=== PATIENT | female | born 1955 | race African-American/Black ===

== ENCOUNTER 2024-01-07 12:06 | Day surgery (SDC) | payer MEDICARE, MEDICAID ==
[~2024-01-07] VITALS: Ht 149.9 cm; Wt 70.8 kg
[~2024-01-07 12:06] MED LIST: AMBIEN 10MG10 MG PO; DOXYCYCLINE 10100 MG PO; FLEXERIL 1010 MG/TAB PO; GOOD NEIGHBOR325 MG PO; LR 1,000 ML IV SCH; MELOXICAM15 MG PO; NAPROSYN500 MG PO; NEURONTIN100 MG/CAP PO; NORCO 325 MG-51 TAB PO; Ondansetron 4 MG/2 ML VIAL IV PRN; PAXIL 10MG10 MG; PREDNISONE20 MG PO; PRILOSEC 20MG20 MG PO; PRINIVIL5 MG PO; PRINZIDE 12.5 M1 TA1 PO; ZOFRAN ODT4 MG PO; ZOLOFT 100MG100 MG PO
[2024-01-07] MEDS ORDERED: LEXAPRO 10MG10 MG PO (12:47)
[2024-01-07] MEDS ORDERED: PERCOCET 325 MG1 TA3 PO (12:48)
[2024-01-07] MEDS ORDERED: PROTONIX 40MG T40 MG PO (12:49)
[2024-01-07] MEDS ORDERED: PROAIR HFA0.09 MG/AC IH (12:49)
[2024-01-07] MEDS ORDERED: HCTZ 25MG TAB25 MG PO (12:50)
[2024-01-07] MEDS ORDERED: CARAFATE 1GM1 G PO (12:50)
[2024-01-07] MEDS ORDERED: SILENOR6 MG PO (12:50)
[2024-01-07] MEDS ORDERED: CRESTOR5 MG PO (12:51)
[2024-01-07] MEDS ORDERED: NORVASC 10MG10 MG PO (12:52)
--- NOTE | 2024-01-07 12:55 | NUR ---
PATIENT ADMITTED TO ROOM 1 AMBULATORY. C/O BEING VERY TIRED D/T NO SLEEPING LAST PM.
[2024-01-07 13:02] VITALS: BP 149/98; PULSE 89; TEMP 97.5
[2024-01-07] MEDS ORDERED: Lidocaine PF 2% (20 MG/ML) 5 ML VIAL ONE (13:38)
[2024-01-07 14:30] VITALS: BP 133/93; PULSE 63; TEMP 97.5
--- NOTE | 2024-01-07 14:36 | NUR ---
Patient returns to endo bay 1 from procedure, via cart. Assisted to recliner chair with staff x2. VSS. Muffin, crackers, and water given. at bedside. Patient denies complaints. Pt returns from procedure without IV site. Call light within reach.
[2024-01-07 14:45] VITALS: BP 103/77; PULSE 85
--- NOTE | 2024-01-07 14:46 | NUR ---
Denies complaints. Taking in snack without complaints. VSS. Discharge instructions and education reviewed with patient and spouse. Pt getting dressed at this time. Awaiting Dr. Rodriguez to talk with patient.
--- NOTE | 2024-01-07 15:03 | NUR ---
Dr. Rodriguez in room talking with patient at 1500. Pt denies complaints and is ready to discharge. Pt discharging to husbands car via w/c at this time, accompanied by roel Reyes staff.
== END 2024-01-07 15:03 | disposition home or self-care (01) ==
LOC: SDCO 12:06
DX: D12.0 Benign neoplasm of cecum (principal); K21.9 Gastro-esophageal reflux disease without esophagitis; R19.4 Change in bowel habit; R68.81 Early satiety; K64.1 Second degree hemorrhoids; Z87.11 Personal history of peptic ulcer disease
CPT/HCPCS: J2704; J7120